=== PATIENT | male | born 1985 | race American Indian/Alaskan Native ===

== ENCOUNTER 2018-09-29 00:28 | Emergency (ER) | payer SELFPAY ==
[2018-09-29] MEDS ORDERED: NORCO 5/325 PO ONE (01:08)
--- NOTE | 2018-09-29 01:31 | Cat Scan Report ---
FINAL REPORT EXAM: CT HEAD/BRAIN WO CON HISTORY: Severe headache TECHNIQUE: Routine axial imaging was obtained of the brain without IV contrast. FINDINGS: The ventricular system is appropriate in size and is symmetric. There is no evidence of acute stroke or hemorrhage. The basal cisterns appear normal. The visualized sinuses are clear. The mastoid air ce lls are well pneumatized. The calvarium appears intact. IMPRESSION: Within normal limits.
[2018-09-29] MEDS ORDERED: MORPHINE IV ONE (01:40)
[2018-09-29] MEDS ORDERED: SOLU-Medrol IV ONE (01:40)
[2018-09-29] MEDS ORDERED: NACL 0.9% 1000 ML 1,000 ML IV ONE (01:40)
--- NOTE | 2018-09-29 01:43 | Emergency Department Report ---
HPI - General Chief Complaint: Headache Time Seen by Provider: 09/29/18 01:39 - HPI HPI: 33-year-old male presents to the emergency department with complaint of a right-sided headache, including behind the right eye, that has been going on intermittently over the past 3 weeks. Usually he is able to take some Tylenol or a BC Powder and it will improve or resolve. He felt it coming on around 7 or 8 this morning and once again some [id number] pain medication at this time it did not improve. He denies any slurred speech, trouble with ambulation, or any neurological deficits. He denies any past medical history. He does not have a primary care physician. No recent travel or sick contacts at home. ED Past Medical Hx - Past Medical History Previous Medical History?: Yes - Surgical History Past Surgical History?: Yes Additional Surgical History: Knee surgery and Nose surgery - Social History Smoking Status: Current Some Day Smoker - Medications Home Medications: Home Medications Medication Instructions Recorded Confirmed Last Taken Type HYDROcodone/APAP 5-325 [[place]ira 1 each PO Q6HR PRN #10 tablet 09/29/18 Unknown Rx 5/325] ED Review of Systems ROS: Stated complaint: HEADACHE Other details as noted in HPI Comment: All other systems reviewed and negative Constitutional: denies: chills, fever Eyes: denies: eye pain, eye discharge ENT: denies: ear pain, throat pain Respiratory: denies: cough, shortness of breath Cardiovascular: denies: chest pain, palpitations Gastrointestinal: denies: abdominal pain, vomiting Genitourinary: denies: dysuria, discharge Musculoskeletal: denies: back pain, arthralgia Skin: denies: rash, lesions Neurological: headache. denies: weakness, numbness Physical Exam - Physical Exam Vital Signs: Vital Signs 09/29/18 09/29/18 09/29/18 00:32 00:58 01:11 Temperature 97.7 F 97.7 F Pulse Rate 54 L 56 L Respiratory 18 18 20 Rate Blood Pressure 127/77 127/77 O2 Sat by Pulse 100 100 Oximetry Physical Exam: GENERAL: The patient is well-developed well-nourished. HEENT: Normocephalic. Atraumatic. Patient has moist mucous membranes. EYES: Extraocular motions are intact. Pupils are equal and reactive to light bilaterally. Patient has some photophobia. NECK: Supple. Trachea is midline. CHEST/LUNGS: Clear to auscultation. There is no respiratory distress noted. HEART/CARDIOVASCULAR: Regular. There is no tachycardia. There is no obvious murmur. ABDOMEN: Abdomen is soft, nontender. Patient has normal bowel sounds. There is no abdominal distention. SKIN: Skin is warm and dry. NEURO: The patient is awake, alert, and oriented. The patient is cooperative. The patient has no focal neurologic deficits. The patient has normal speech. Cranial nerves II through XII grossly intact. MUSCULOSKELETAL: There is no tenderness or deformity. There is no limitation range of motion. There is no evidence of acute injury. ED Course Vital Signs 09/29/18 09/29/18 09/29/18 00:32 00:58 01:11 Temperature 97.7 F 97.7 F Pulse Rate 54 L 56 L Respiratory 18 18 20 Rate Blood Pressure 127/77 127/77 O2 Sat by Pulse 100 100 Oximetry ED Medical Decision Making - Radiology Data Radiology results: report reviewed EXAM: CT HEAD/BRAIN WO CON HISTORY: Severe headache TECHNIQUE: Routine axial imaging was obtained of the brain without IV contrast. FINDINGS: The ventricular system is appropriate in size and is symmetric. There is no evidence of acute stroke or hemorrhage. The basal cisterns appear normal. The visualized sinuses are clear. The mastoid air cells are well pneumatized. The calvarium appears intact. IMPRESSION: Within normal limits. Transcribed By: RB Dictated By: SADAF EPSTEIN MD Electronically Authenticated By: SADAF EPSTEIN MD Signed Date/Time: 09/29/18 0131 - Medical Decision Making Patient presents with a headache to the right side of the head and behind the right eye. Overall this been going on for the past 3 weeks but he says that it did not respond to the [id number] pain medications that he usually takes. On examination he has some photophobia but otherwise there is no focal, motor or sensory deficits. CT scan of the head did not show any bleed, shift, mass, ischemia, or any other acute process. The patient was given some IV fluid, pain medication and Solu-Medrol. He was reevaluated multiple times over a few hours and is feeling greatly improved. The patient longer has any photophobia and says that his headache is almost completely resolved. He was seen ambulatory prior to discharge in both bone and appears stable. Given that his headache appears to come on around the same time each day it could be a cluster headache. Nonetheless, the patient appears safe for discharge home at this time. He has been given referrals for both primary care and neurology. He will return to the ER with any worsening of his symptoms or any acute distress. - Differential Diagnosis cluster headache, tension headache, migraine, brain bleed Critical Care Time: No Critical care attestation.: If time is entered above; I have spent that time in minutes in the direct care of this critically ill patient, excluding procedure time. ED Disposition Clinical Impression: Headache Qualifiers: Headache type: unspecified Headache chronicity pattern: episodic headache Intractability: not intractable Qualified Code(s): R51 - Headache Disposition: - TO HOME OR SELFCARE Is pt being admited?: No Condition: Stable Instructions: Acute Headache (ED) Additional Instructions: Please follow up with a primary care physician. I have also given a referral for a local neurologist, Dr. Barksdale, to follow up regarding her headaches. Return to the emergency Department with any worsening of your symptoms or any acute distress. You have been prescribed a medication that can be sedating. Therefore, this medication cannot be taken prior to driving, working, being responsible for children, and cannot be mixed with alcohol of any quantity. Prescriptions: HYDROcodone/APAP 5-325 [Lomira 5/325] 1 each PO Q6HR PRN #10 tablet PRN Reason: Pain Referrals: CAMMIE BISHOP MD [Primary Care Provider] - 3-5 Days VITA MOHAN MD [Staff Physician] - 3-5 Days [facility] [Outside] - 3-5 Days Time of Disposition: 03:27
[2018-09-29 14:56] VITALS: BP 108/59
== END 2018-09-29 03:56 | disposition home or self-care (01) ==
LOC: ED 00:28
DX: R51 Headache (principal); F17.200 Nicotine dependence, unspecified, uncomplicated
CPT/HCPCS: 70450; 96374; 96375; 99283; J2270; J2930; J7030